=== PATIENT | female | born 1995 | race African-American/Black ===

== ENCOUNTER 2018-07-11 10:52 | Emergency (ER) | payer SELFPAY ==
[2018-07-11] MEDS ORDERED: NORMAL SALINE 1000 ML 1,000 ML IV ONE (11:16)
[2018-07-11] MEDS ORDERED: CLONIDINE HCL 0.2 MG TABLET PO ONE ×2 (11:16→12:52)
[2018-07-11] MEDS ORDERED: METOCLOPRAMIDE HCL INJ/PF 10 MG/2 ML SDV IV ONE (11:17)
--- NOTE | 2018-07-11 11:22 | ER Document Report ---
ED Medical Screen (RME) - General Chief Complaint: Headache Stated Complaint: HEADACHE, NECK PAIN Time Seen by Provider: 07/11/18 11:09 Mode of Arrival: Ambulatory Information source: Patient Notes: Patient complained of migraine headache, hypertension, low potassium, nausea and not feeling well generally. I have greeted and performed a rapid initial assessment of this patient. A comprehensive ED assessment and evaluation of the patient, analysis of test results and completion of the medical decision making process will be conducted by additional ED providers. TRAVEL OUTSIDE OF THE [place] IN LAST 30 DAYS: No - Related Data Allergies/Adverse Reactions: aspirin [Aspirin] Allergy (Severe, Verified 07/11/18 10:52) Anaphylaxis buspirone HCl [From BuSpar] Allergy (Severe, Verified 07/11/18 10:52) EPS Symptoms ibuprofen [From Motrin] Allergy (Severe, Verified 07/11/18 10:52) Anaphylaxis ketorolac tromethamine [From Toradol] Allergy (Severe, Verified 07/11/18 10:52) Anaphylaxis sertraline HCl [From Zoloft] Allergy (Severe, Verified 07/11/18 10:52) Seizures tramadol HCl [From Ultram] Allergy (Severe, Verified 07/11/18 10:52) GI upset, Tremors trazodone [Trazodone] Allergy (Severe, Verified 07/11/18 10:52) Seizures, Tremors medroxyprogesterone acetate [From Depo-Provera Contraceptive] Adverse Reaction ( Severe, Verified 07/11/18 10:52) metoclopramide HCl [From Reglan] Adverse Reaction (Verified 07/11/18 10:52) Steroids Allergy (Severe, Uncoded 07/11/18 10:52) Airway closed, severe anxiety Past Medical History - Past Medical History Cardiac Medical History: Reports: Hx Hypertension Neurological Medical History: Reports: Hx Migraine Renal/ Medical History: Denies: Hx Peritoneal Dialysis GI Medical History: Reports: Hx Gastroesophageal Reflux Disease Psychiatric Medical History: Reports: Hx Anxiety Past Surgical History: Reports: Hx Gynecologic Surgery - laparoscopy, Hx Orthopedic Surgery - right foot - Immunizations Immunizations up to date: Yes Hx Diphtheria, Pertussis, Tetanus Vaccination: Yes - 2009 Physical Exam - Vital signs Vitals: Temp Pulse Resp BP Pulse Ox 98.5 F 75 16 156/102 H 100 07/11/18 10:59 07/11/18 10:59 07/11/18 10:59 07/11/18 10:59 07/11/18 10:59 Course - Vital Signs Vital signs: Temp Pulse Resp BP Pulse Ox 98.5 F 75 16 156/102 H 100 07/11/18 10:59 07/11/18 10:59 07/11/18 10:59 07/11/18 10:59 07/11/18 10:59
--- NOTE | 2018-07-11 11:23 | ER Document Report ---
ED Headache - General Chief Complaint: Headache Stated Complaint: HEADACHE, NECK PAIN Time Seen by Provider: 07/11/18 11:09 Mode of Arrival: Ambulatory Information source: Patient Notes: 23-year-old female with a history of hypothyroidism and hypertension is complaining of a bilateral temporal and behind the eyes and ears headache waxing and waning over the past week and a half. She has been out of her Lasix 40 mg, metoprolol 100 mg twice daily and clonidine 0.3 mg tid, 6 months ago. When she was in the car at 830 this morning she felt cold had a flush of heat with nausea and she describes it as a "brain freeze" all over her body. She has had this before and she thinks is due to a low potassium. She has a history of migraines since age 10 and feels like she can manage his headache on her own the thing she really wanted treated today with the nausea and to check her potassium. No fever or chills. No recent upper respiratory infection. No sore throat runny nose or cough. No abdominal pain. No vomiting or diarrhea. She does state that her right side of her face was swollen yesterday and feels a lymph node under her right mandible. TRAVEL OUTSIDE OF THE [place] IN LAST 30 DAYS: No - Related Data Allergies/Adverse Reactions: aspirin [Aspirin] Allergy (Severe, Verified 07/11/18 10:52) Anaphylaxis buspirone HCl [From BuSpar] Allergy (Severe, Verified 07/11/18 10:52) EPS Symptoms ibuprofen [From Motrin] Allergy (Severe, Verified 07/11/18 10:52) Anaphylaxis ketorolac tromethamine [From Toradol] Allergy (Severe, Verified 07/11/18 10:52) Anaphylaxis sertraline HCl [From Zoloft] Allergy (Severe, Verified 07/11/18 10:52) Seizures tramadol HCl [From Ultram] Allergy (Severe, Verified 07/11/18 10:52) GI upset, Tremors trazodone [Trazodone] Allergy (Severe, Verified 07/11/18 10:52) Seizures, Tremors medroxyprogesterone acetate [From Depo-Provera Contraceptive] Adverse Reaction ( Severe, Verified 07/11/18 10:52) metoclopramide HCl [From Reglan] Adverse Reaction (Verified 07/11/18 10:52) Steroids Allergy (Severe, Uncoded 07/11/18 10:52) Airway closed, severe anxiety Past Medical History - General Information source: Patient - Social History Smoking Status: Former Smoker Family History: Arthritis, CAD, CVA, DM, Hyperlipidemia, Hypertension, Malignancy, Thyroid Disfunction Patient has suicidal ideation: No Patient has homicidal ideation: No - Past Medical History Cardiac Medical History: Reports: Hx Hypertension Neurological Medical History: Reports: Hx Migraine Renal/ Medical History: Denies: Hx Peritoneal Dialysis GI Medical History: Reports: Hx Gastroesophageal Reflux Disease Psychiatric Medical History: Reports: Hx Anxiety Past Surgical History: Reports: Hx Gynecologic Surgery - laparoscopy, Hx Orthopedic Surgery - right foot - Immunizations Immunizations up to date: Yes Hx Diphtheria, Pertussis, Tetanus Vaccination: Yes - 2009 Review of Systems - Review of Systems Constitutional: See HPI EENT: No symptoms reported Cardiovascular: No symptoms reported Respiratory: No symptoms reported Gastrointestinal: No symptoms reported Genitourinary: No symptoms reported Female Genitourinary: No symptoms reported Musculoskeletal: No symptoms reported Skin: No symptoms reported Hematologic/Lymphatic: No symptoms reported Neurological/Psychological: See HPI Physical Exam - Vital signs Vitals: Temp Pulse Resp BP Pulse Ox 98.5 F 75 16 164/110 H 100 07/11/18 10:56 07/11/18 10:56 07/11/18 10:56 07/11/18 10:56 07/11/18 10:56 Interpretation: Normal - General General appearance: Appears well, Alert - HEENT Head: Normocephalic, Atraumatic Eyes: Normal Conjunctiva: Normal Pupils: PERRL Mucous membranes: Normal Pharynx: Normal Neck: Supple. No: Lymphadenopathy - Respiratory Respiratory status: No respiratory distress Chest status: Nontender Breath sounds: Normal Chest palpation: Normal - Cardiovascular Rhythm: Regular Heart sounds: Normal auscultation Murmur: No - Abdominal Inspection: Normal Distension: No distension Bowel sounds: Normal Tenderness: Nontender Organomegaly: No organomegaly - Back Back: Normal, Nontender - Extremities General upper extremity: Normal inspection, Nontender, Normal color, Normal ROM , Normal temperature General lower extremity: Normal inspection, Nontender, Normal color, Normal ROM , Normal temperature, Normal weight bearing. No: Jimmie's sign - Neurological Neuro grossly intact: Yes Cognition: Normal Orientation: AAOx4 Mulhall Coma Scale Eye Opening: Spontaneous [place] Coma Scale Verbal: Oriented Mulhall Coma Scale Motor: Obeys Commands Mulhall Coma Scale Total: 15 Speech: Normal Motor strength normal: LUE, RUE, LLE, RLE Sensory: Normal - Psychological Associated symptoms: Normal affect, Normal mood - Skin Skin Temperature: Warm Skin Moisture: Dry Skin Color: Normal Skin irregularity: negative: Rash Course - Re-evaluation Re-evalutation: 07/11/18 12:53 Labs are normal, she is not , there is no urinary tract infection, we discussed at length about blood pressure medication she seemed to think that the metoprolol and clonidine was working the best. It was started while she was at the burn unit last June. She is to see Dr. Hurt. She is trying to get back in with her primary care doctor. We decided to put her on 50 mg of metoprolol twice a day and clonidine 0.1 mg 3 times a day instead of 0.3 tid.. 07/11/18 headache down to 2.5 at discharge, feels better. - Vital Signs Vital signs: Temp Pulse Resp BP Pulse Ox 99.0 F 66 16 170/99 H 100 07/11/18 14:03 07/11/18 14:03 07/11/18 14:03 07/11/18 14:03 07/11/18 14:03 - Laboratory Result Diagrams: 07/11/18 12:00 07/11/18 12:00 Laboratory results interpreted by me: 07/11/18 07/11/18 11:37 12:00 Hgb 11.7 L Hct 35.7 L Urine Protein 30 H Discharge - Discharge Clinical Impression: Nausea Headache Qualifiers: Headache type: unspecified Headache chronicity pattern: episodic headache Intractability: not intractable Qualified Code(s): R51 - Headache Hypertension Qualifiers: Hypertension type: unspecified Qualified Code(s): I10 - Essential (primary) hypertension Condition: Good Disposition: HOME, SELF-CARE Instructions: Acetaminophen, Antinausea Medication ([facility]), Beta Blockers ([facility]), Clonidine ([facility]ap[facility]) ([facility]), Headache ([facility]), High Blood Pressure ([facility]), Nausea or Vomiting, Nonspecific ([facility]) Additional Instructions: Tylenol up to 4000 mg a day for pain Return to the emergency room any worsening of the symptoms Copy of lab were given to you See a primary care doctor next week to recheck your blood pressure and for further prescriptions Prescriptions: Clonidine HCl 0.1 mg PO TID #90 tablet Metoprolol Tartrate [Lopressor] 50 mg PO BID #60 tablet Forms: Return to Work Referrals: CHADD RODRIGUEZ MD [ACTIVE STAFF] - Follow up in 1 week
[2018-07-11] MEDS ORDERED: ACETAMINOPHEN 325 MG TABLET PO ONE (11:36)
[2018-07-11] MEDS ORDERED: ONDANSETRON 4 MG TAB.RAPDIS PO ONE (11:36)
[2018-07-11 11:58] LABS: APPEARANCE,URINE CLEAR; BILIRUBIN,URINE NEGATIVE (NEGATIVE); COLOR,URINE STRAW; GLUCOSE, URINE NEGATIVE (NEGATIVE); KETONES,URINE NEGATIVE (NEGATIVE); LEUKOCYTE ESTERASE,URINE NEGATIVE (NEGATIVE); NITRITE,URINE NEGATIVE (NEGATIVE); PROTEIN,URINE 30 mg/dL (NEGATIVE); URINE SPECIFIC GRAVITY 1.006; UROBILINOGEN,URINE NEGATIVE mg/dL (<2.0)
[2018-07-11 12:10] LABS: ABSOLUTE EOSINOPHILS # (AUTO) 0.1 10^3/uL (0.0-0.6); ABSOLUTE LYMPHOCYTES (AUTO) 1.6 10^3/uL (0.5-4.7); ABSOLUTE MONOCYTES (AUTO) 0.6 10^3/uL (0.1-1.4); ABSOLUTE NEUT (AUTO) 6.4 10^3/uL (1.7-8.2); BASOPHILS % (AUTO) 0.5 % (0-2); EOSINOPHILS % (AUTO) 1.1 % (0-6); HEMATOCRIT 35.7 % (36.0-47.0); HEMOGLOBIN 11.7 g/dL (12.0-15.5); LYMPHOCYTES % (AUTO) 18.5 % (13-45); MEAN CORPUSCULAR HEMOGLOBIN 27.1 pg (27.0-33.4); MEAN CORPUSCULAR HGB CONC 32.8 g/dL (32.0-36.0); MEAN CORPUSCULAR VOLUME 83 fl (80-97); MONOCYTES % (AUTO) 6.5 % (3-13); PLATELET COUNT 350 10^3/uL (150-450); RED BLOOD COUNT 4.32 10^6/uL (3.72-5.28); RED CELL DISTRIBUTION WIDTH 13.9 % (11.5-14.0); SEGMENTED NEUTROPHILS % (AUTO) 73.4 % (42-78); TOTAL CELLS COUNTED % (AUTO) 100 %; WHITE BLOOD COUNT 8.7 10^3/uL (4.0-10.5)
[2018-07-11 12:25] LABS: ALANINE AMINOTRANSFERASE 23 U/L (9-52); ALBUMIN 3.8 g/dL (3.5-5.0); ALKALINE PHOSPHATASE 55 U/L (38-126); ANION GAP 7 (5-19); ASPARTATE AMINO TRANSFERASE 18 U/L (14-36); BILIRUBIN,DIRECT 0.2 mg/dL (0.0-0.4); BILIRUBIN,TOTAL 0.4 mg/dL (0.2-1.3); BLOOD UREA NITROGEN 9 mg/dL (7-20); CARBON DIOXIDE 26 mmol/L (22-30); CHLORIDE 107 mmol/L (98-107); GLUCOSE 90 mg/dL (75-110); POTASSIUM 3.6 mmol/L (3.6-5.0)
[2018-07-11] MEDS ORDERED: METOPROLOL TARTRATE 50 MG TABLET PO ONE (12:52)
[2018-07-11 14:04] VITALS: BP 170/99
== END 2018-07-11 14:04 | disposition home or self-care (01) ==
LOC: ER 10:52
DX: R51 Headache (principal); M54.2 Cervicalgia; I10 Essential (primary) hypertension; E03.9 Hypothyroidism, unspecified
CPT/HCPCS: 99283; 36415; 85025; 81025; 80053; 81001; S0119

== ENCOUNTER → 2020-01-29 | Outpatient (CLI) | payer BC ==
[2020-01-29 12:18] LABS: ABSOLUTE BASOPHILS # (AUTO) 0.1 10^3/uL (0.0-0.2); ABSOLUTE EOSINOPHILS # (AUTO) 0.1 10^3/uL (0.0-0.6); ABSOLUTE LYMPHOCYTES (AUTO) 1.1 10^3/uL (0.5-4.7); ABSOLUTE MONOCYTES (AUTO) 0.4 10^3/uL (0.1-1.4); ABSOLUTE NEUT (AUTO) 5.1 10^3/uL (1.7-8.2); EOSINOPHILS % (AUTO) 1.4 % (0-6); HEMATOCRIT 38.6 % (36.0-47.0); LYMPHOCYTES % (AUTO) 16.8 % (13-45); MEAN CORPUSCULAR HEMOGLOBIN 28.3 pg (27.0-33.4); MEAN CORPUSCULAR HGB CONC 33.6 g/dL (32.0-36.0); MEAN CORPUSCULAR VOLUME 84 fl (80-97); MONOCYTES % (AUTO) 5.3 % (3-13); PLATELET COUNT 287 10^3/uL (150-450); RED BLOOD COUNT 4.58 10^6/uL (3.72-5.28); RED CELL DISTRIBUTION WIDTH 14.2 % (11.5-14.0); SEGMENTED NEUTROPHILS % (AUTO) 75.5 % (42-78); TOTAL CELLS COUNTED % (AUTO) 100 %; WHITE BLOOD COUNT 6.8 10^3/uL (4.0-10.5)
[2020-01-29 12:42] LABS: ALBUMIN 4.3 g/dL (3.5-5.0); ALKALINE PHOSPHATASE 64 U/L (38-126); ANION GAP 8 (5-19); ASPARTATE AMINO TRANSFERASE 19 U/L (14-36); BILIRUBIN,DIRECT 0.2 mg/dL (0.0-0.4); BILIRUBIN,TOTAL 0.4 mg/dL (0.2-1.3); BLOOD UREA NITROGEN 12 mg/dL (7-20); CALCIUM 9.1 mg/dL (8.4-10.2); CARBON DIOXIDE 25 mmol/L (22-30); CHLORIDE 104 mmol/L (98-107); GLUCOSE 95 mg/dL (75-110); TOTAL PROTEIN 7.8 g/dL (6.3-8.2)
[2020-01-29 16:17] LABS: FREE T4 (FREE THYROXINE) 1.28 ng/dL (0.78-2.19)
[2020-01-29 16:31] LABS: THYROID STIMULATING HORMONE 7.36 uIU/mL (0.47-4.68)
== END ==
LOC: OD 10:55
PROVIDERS: ATTEND Internal Medicine
DX: I16.0 Hypertensive urgency (principal); J45.30 Mild persistent asthma, uncomplicated; E03.9 Hypothyroidism, unspecified
CPT/HCPCS: 36415; 80053; 82088; 82785; 84244; 84439; 84443; 85025; 86003

== ENCOUNTER → 2020-03-12 | Outpatient (CLI) | payer BC ==
--- NOTE | 2020-03-13 08:17 | RADIOLOGY REPORT (SQ) ---
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 TECHNIQUE: Coronal and Axial imaging with T1 and T2 weighting through the abdomen. 3-D MIPs perform ed at the work station. CONTRAST TYPE AND DOSE: None. RENAL FUNCTION: Not indicated. LIMITATIONS: None. FINDINGS: AORTA AND ILIAC ARTERIES:No aneurysm. No dissection. No significant finding or stenosis. MESENTERIC VESSELS:No significant finding or stenosis. RENAL ARTERIES:No significant finding or stenosis. ABDOMINAL ORGANS: No significant findings on limited evaluation. BONY STRUCTURES: No significant finding as visualized. OTHER: No other significant finding. IMPRESSION: NORMAL MRA OF THE ABDOMEN. TECHNICAL DOCUMENTATION: JOB ID: [id number] [employer]- All Rights Reserved Reading location - IP/workstation name: [email or web address]
== END ==
LOC: RAD 18:13
PROVIDERS: ATTEND Internal Medicine
DX: I70.1 Atherosclerosis of renal artery (principal)
CPT/HCPCS: C8901